=== PATIENT | female | born 2000 | race Caucasian/White ===

== ENCOUNTER 2024-09-10 11:34 | Outpatient (CLI) | payer OTHER, SELFPAY ==
--- OUTSIDE RECORDS SUMMARY | 2024-09-10 11:53 | XMS_ITS | Data Portability ---
Author Organization [facility], [facility] Address [address] [place] [address] Assessment Encounter Date Assessment Date Assessment LastModified by Organization Details LastModified Time 05/18/2024 05/18/2024 Gaby Angel is a 23 -year-old presenting s to the clinic via private vehicle for sick visit. Patient denies chest pain, shortness of breath, funny heartbeats, dizziness, nausea, vomiting, or diarrhea. Patient denies any skin concerns. Patient denies difficulty urinating. Patient denies muscular pain. Patient C/o sore throat, ear pain, headache, fatigue, sinus pressure. Patient has been using over the counter medications without relief. Pt positive for strep will send out cefdinir and dexamethasone. Pt given work note for today and tomorrow to be off. NOTE: Visit represents a synchronous, interactive real-time audio and visual virtual visit. Identity of patient verified via 3 different methods (Name, , and address). Patient has given consent and permission to be seen via telehealth. Not available 05/18/2024 16:16:25 Plan of Treatment Reminders Order Date Submit Date Provider Last Modified By Organization Details Last Modified Time Details Appointments None recorded. Lab rapid strep group A, throat 2023 [facility], [address] [place], [address], 16:06:51 influenza virus A + B + SARS-CoV-2 (COVID19) Ag panel, rapid IA, upper respiratory specimen 2023 [facility], [address] [place], [address], 16:07:04 Referral behavioral health referral 2023 [facility], [address], [address], [place], [address], 13:57:51 Procedures None recorded. Surgeries None recorded. Imaging None recorded. Medication Orders cefdinir 300 mg capsule 2023 [id number], [address] [place], [place], [id number], 16:06:28 dexamethaso ne 0.5 mg/5 mL oral elixir 2023 [facility], [address], [place], [id number], 16:09:09 naltrexone 50 mg tablet 2023 [facility] #63533, [address], [place], [id number], 12:36:03 bupropion HCl XL 150 mg 24 hr tablet, extended release 2023 [facility] #30397, [address], [place], [id number], 12:36:03 Junel FE /20 (28) 1 mg-20 mcg (21)/75 mg (7) tablet 2023 [facility] [address] [facility], [address] [facility], [place], [address], 15:55:41 Wellbutrin XL 150 mg 24 hr tablet, extended release 2023 [address] [facility] [address] [facility], [address] [place], [address], 14:50:44 Patient TargetsNo targets recorded. Patient Instructions Encounter Date Encounter Id Patient Instructions Last Modified By Organization Details Last Modified Time 05/18/2024 new tooth brush and tooth paste in 3 days. Not available 05/18/2024 16:13:18 Reason for Referral Behavioral Health Referral f or Anxiety Referring Physician: Yary Salas, Hr Manager, Encounter Date: 09/27/2023 Results Created Date Observation Date Name Description Value Unit Range Abnormal Flag Note LastModifiedBy Organization Detail LastModifiedTime 05/18/2005/18/2024 influ ora virus A + B + SARS- CoV-2 (COVI D19) Ag panel , rapid IA, upper respi rator y speci men Flu A negati ve Not Available [address], [address], 05/18/2024 14:13:33 05/18/2005/18/2024 influ ora virus A + B + SARS- CoV-2 (COVI D19) Ag panel , rapid IA, upper respi rator y speci men Flu B negati ve Not Available [address], [address], 05/18/2024 14:13:33 05/18/20 24 05/18/2024 influ ora virus A + B + SARS- CoV-2 (COVI D19) Ag panel , rapid IA, upper respi rator y speci men SARS-CoV-2 (COVID-19) negati ve Not Available [address], [address], 05/18/2024 14:13:33 05/18/20 24 05/18/2024 rapid strep group A, throa t Strep positi ve Not Available [facility] [address] [facility], [place], [address], 05/18/2024 14:13:31 Result Notes None recorded. Problems Name Problem SNOMED Code Status Onset Date Resolution Date Notes Provider Name and Address Organization Details Recorded Time Sore throat 914390024 Active 2023 Annmariesho Currie grant, [facility] 14:13:02 Illness 00322717 Active 2023 Annmarie Ceciletodd null, [facility] 14:13:22 Streptococcal sore throat 27245782 Active 2023 PRAVEEN DOTSON NP [address] [place], [address] , [facility] 16:02:59 Ringing in ear 979398722 Active 2023 PRAVEEN DOTSON NP [address] [place], [address] , [facility] 4 16:11:19 Pain of ear 476366423 Active 2023 PRAVEEN DOTSON NP [address] [place], [address] , [facility] 4 16:12:36 Fatigue 80874240 Active 2023 PRAVEEN DOTSON NP [address] [facility], [place], [address] , [facility] 4 16:12:42 Headache 44679713 Active 2023 PRAVEEN DOTSON NP [address] [place], [address] , [facility] 16:12:53 Problem Notes None recorded. Procedures Surgical History Date Name Laterality Status Provider Name and Address Organization Details Recorded Time 3 Blood Draw completed Mary Gar [facility] 09/12/2022 12:54:08 3 ECG Procedure completed Mary Gar [facility] 09/12/2022 12:54:14 2 Date of Last Pap Smear completed Not Available Health Note 09/23/2023 12:35:14 Imaging Results None recorded. Procedure Notes None recorded. Medical Equipment None Reported. Allergies No known drug allergies Medications Name Sig Start Date Stop Date Status Note LastModified by Organization Details LastModified Time meloxicam 15 mg tablet Take 1 tablet every day by oral route. 09/26 completed HN: Patient reports no longer taking Not Available Not Available Not Available naltrexon e 50 mg tablet Take 0.5 tablets every day by oral route for 90 days. 2023 active Not Available Not Available Not Avai lable hydroxyzi ne HCl 50 mg tablet TAKE 1 TABLET BY MOUTH FOUR TIMES A DAY NEEDED active Not Available Not Available No t Available dexametha sone 0.5 mg/5 mL oral elixir Take 5 mL twice a day by oral route for 3 days, for throat pain. 2023 active Not Available Not Available Not Avai lable cefdinir 300 mg capsule Take 1 capsule twice a day by oral route for 10 days. 2023 active Not Available Not Available Not Avai lable bupropion HCl XL 150 mg 24 hr tablet, extended release TAKE 1 TABLET BY MOUTH EVERY DAY 2023 active Not Available Not Available Not Avai lable 08/10 (28) 1 mg-20 mcg (21)/75 mg (7) tablet Take 1 tablet every day by oral route. 05/18 completed Not Available Not Available Not Available 08/10 (28) 28 tablets 1/day 05/18 completed Not Available Not Available Not Available Vitals Date Recorded Body height Provider Name an d Address Organization Details Last Updated DateTime 04/19/2023 173.5 cm YARY BELLE, SENIOR PRINCIPAL PROCESS ENGINEER [address] [facility], [place], [address], [facility] 04/19/2023 16:25:23 Date Recorded Body weight Body mass index (BMI) Body height Oxygen saturation Oxygen saturation in Arterial blood by Pulse oximetry Respiratory rate Heart rate Body temperature Systolic blood pressure Diastolic blood pressure Provider Name and Address Organization Details Last Updated DateTime 4 41399.3 7 g 26.4 kg/m2 176.78 cm 99 % 99 % 14 /min 77 /min 97.4 [degF] 158 mm[Hg] 97 mm[Hg] Mor Foy [facility] 4 11:26:04 Date Recorded Body height Provider Name an d Address Organization Details Last Updated DateTime 05/18/2024 176.78 cm Annmarie Currie [facility] 15:55:22 Date Recorded Systolic blood pressure Diastolic blood pressure Systolic blood pressure Diastolic blood pressure Provider Name and Address Organization Details Last Updated DateTime 11/09/2023 126 mm[Hg] 80 mm[Hg] 120 mm[Hg] 90 mm[Hg] Not Available [facility] 18:39:40 Date Recorded Systolic blood pressure Diastolic blood pressure Provider Name and Address Organization Details Last Updated DateTime 11/08/2023 114 mm[Hg] 66 mm[Hg] Not Available [facility] 10/21 18:26:41 Date Recorded Systolic blood pressure Diastolic blood pressure Systolic blood pressure Diastolic blood pressure Systolic blood pressure Diastolic blood pressure Provider Name and Address Organization Details Last Updated DateTime 132 mm[Hg] 88 mm[Hg] 132 mm[Hg] 82 mm[Hg] 122 mm[Hg] 78 mm[Hg] Not Available [facility] 21:06:19 Date Recorded Systolic blood pressure Diastolic blood pressure Provider Name and Address Organization Details Last Updated DateTime 11/11/2023 128 mm[Hg] 86 mm[Hg] Not Available [facility] 10/21 18:32:06 Date Recorded Systolic blood pressure Diastolic blood pressure Systolic blood pressure Diastolic blood pressure Provider Name and Address Organization Details Last Updated DateTime 11/13/2023 118 mm[Hg] 78 mm[Hg] 156 mm[Hg] 88 mm[Hg] Not Available [facility] 23:01:04 Date Recorded Systolic blood pressure Diastolic blood pressure Provider Name and Address Organization Details Last Updated DateTime 11/16/2023 120 mm[Hg] 86 mm[Hg] Not Available [facility] 10/21 18:36:23 Date Recorded Systolic blood pressure Diastolic blood pressure Provider Name and Address Organization Details Last Updated DateTime 12/11/2023 118 mm[Hg] 82 mm[Hg] Not Available [facility] 11/20 11:47:04 Social History Question Answer Notes LastModified by Organizat ion Details LastModified Time Tobacco Smoking Status Never Smoker Not Available Health Note 09/23/2023 12:35:12 What Is Your Level Of Alcohol Consumption? Moderate [email or web address] Information not available 09/23/2023 How Many Times Per Week Do You Consume Alcohol? 1-2 Times Per Week [email or web address] Information not available 09/23/2023 Are You Currently Employed? Yes [email or web address] Information not available 09/08/2022 What Type Of Diet Are You Following? REGULAR [email or web address] Information not available 09/23/2023 Do You Or Have You Ever Used E-cigarettes Or Vape? Former User Of Electronic Cigarettes [email or web address] Information not available 09/23/2023 Who Is Your Employer? 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 1-2 Times Per Week [email or web address] Information not available 09/23/2023 How Many Children Do You Have? 0 [email or web address] Information not available 09/23/2023 Are There Any Occupational Health Risks Where You Work? Exposures To Blood, Illness, Bodily Fluids [email or web address] Information not available 09/08/2022 Have You Ever Been Counseled For Unhealthy Alcohol Use? No [email or web address] Information not available 09/08/2022 Do You Use Protection During Sex? No [email or web address] Information not available 09/23/2023 What Is Your Relationship Status? Single [email or web address] Information not available 09/23/2023 Are You Sexually Active? Yes [email or web address] Information not available 09/23/2023 Do You Or Have You Ever Used Smokeless Tobacco? Never Used Smokeless Tobacco [email or web address] Information not available 09/08/2022 Do You Use Any Illicit Or Recreational Drugs? No [email or web address] Information not available 09/23/2023 Have You Recently Traveled Abroad? No [email or web address] Information not available 09/23/2023 Do You Or Have You Ever Used Any Other Forms Of Tobacco Or Nicotine? Yes [email or web address] Information not available 09/23/2023 Do You Have Any Future Plans To Get ? Unsure [email or web address] Information not available 09/23/2023 What Is Your Status? Not [email or web address] Information no t available 09/23/2023 Sex: Female Functional Status Question Answer Note LastModified by Organizat ion Details LastModified Time What is your exercise level? Occasional [email or web address] Information not available 09/23/2023 Mental Status None recorded. Family History Relationship Description Onset Age of this Age Resolved Age Notes LastModified by Organization Details LastModified Time Mother Family history of malignant neoplasm [email or web address] Not available 2022 13:11:52 Mother Hypertensive disorder [email or web address] Not available 2022 13:11:52 Sister Family history of diabetes mellitus Diabet es [email or web address] Not available 09/23/2023 12:35:10 Medical History Condition Response ADD/ADHD N Heart Disease N Cancer N Stroke N Thyroid Problems N Hypertension N Depression N COPD N Asthma N Gynecological History Statement/Question Response STIs/STDs N HPV Vaccine Y Date of Last Pap Smear 04/05/2022 Date of LMP 05/15/2024 History of abnormal pap smears N Obstetrics History GPAL:G 0 P 0 0 0 0 Immunizations Vaccine Type Date Status Note Provider Nam e and Address Organization Details Recorded Time COVID-19, mRNA, LNP-S, PF, 100 mcg/0.5mL dose or 50 mcg/0.25mL dose 1 completed Not Available Health Note 09/08/2022 13:11:59 COVID-19, mRNA, LNP-S, PF, 100 mcg/0.5mL dose or 50 mcg/0.25mL dose 1 completed Not Available Health Note 09/08/2022 13:11:59 Tdap 2 completed Not Available Health Note 09/08/2022 13:11:59 HPV, quadrivalent 2 completed Not Available Health Note 09/08/2022 13:11:59 Influenza, split virus, quadrivalent, preservative 2 completed Not Available Health Note 09/08/2022 13:11:59 Past Encounters Encounter ID Performer Location Encounter Start Date Encounter Closed Date Diagnosis/Indication Diagnosis SNOMED-CT Code Diagnosis ICD10 Code Diagnosis Note [id number] YARY SALAS NP [facility] [address] [place] [address] 09/12/2022 11:58:15 09/12/2022 13:16:27 Active or passive immunization 802883967 Z23 Chest pain 41641474 R07. 9 differenti als:anxiet ypleurisyi schemia/PE lung pneumonia/ bronchitis (no URI symptoms, no wheezing) Modified Rooks score: 5Clinical probabilit y of PE: Intermedia teWells score: 0Clinical probabilit y of PE: Low check labs and xray Referral needed 09290383 9 Z76.89 Renewal of prescription 914343045 Z76.0 [id number] YARY SALAS NP [facility] [address] [place] [address] 10/11/2022 13:06:58 10/11/2022 14:25:00 Chest pain 72097850 R07.9 Chest xray and labs normal, trial meloxicam x10 days and update with symptoms differenti als:anxiet ypleurisyi schemia/PE lung pneumonia/ bronchitis (no URI symptoms, no wheezing) Modified Rooks score: 5Clinical probabilit y of PE: Intermedia teWells score: 0Clinical probabilit y of PE: Low check labs and xray [id number] YARY SALAS NP [facility] [address] [place] [address] 04/19/2023 16:25:04 04/23/2023 11:04:18 Vertigo 320174245 R42 BPPV vs Meniereswa iting on Susie consultsug gested flonasecon tinue with meclizine and zofran as neededcont inue with emmanuel maneuvers [id number] YARY SALAS NP [facility] [address] [place] [address] 09/27/2023 11:22:32 09/27/2023 12:15:34 Anxiety 88009968 F41.9 Follow up in 4-5 weeks, virtual If you are thinking about harming yourself or attempting suicide, tell someone who can help right away:*Call 911 for emergency services.* Go to the nearest hospital emergency room.*Call or text 988 to connect with the [facility] Suicide & Crisis Lifeline. The Lifeline provides 24-hour, confidenti al support to anyone in suicidal crisis or emotional distress. Support is also available via live chat. Para ayuda en espa ol, llame al 988. Adult heal th examination 147884515 Z00.00 labs last year normal, none needed today Renewal of prescription 971678695 Z76.0 [id number] YARY SALAS NP [facility] [address] [place] [address] 11/08/2023 12:11:36 11/08/2023 14:44:06 Anxiety 24940325 F41.9 -19: continue current dose of wellbutrin , follow up in 12 weeks Follow up in 4-5 weeks, virtual If you are thinking about harming yourself or attempting suicide, tell someone who can help right away:*Call 911 for emergency services.* Go to the nearest hospital emergency room.*Call or text 988 to connect with the [facility] Suicide & Crisis Lifeline. The Lifeline provides 24-hour, confidenti al support to anyone in suicidal crisis or emotional distress. Support is also available via live chat. Para ayuda en espa ol, llame al 988. [id number] [facility] [address] [place] [address] 04/29/2024 11:54:11 05/08/2024 11:32:11 Anxiety 73001084 F41.9 -19: continue current dose of wellbutrin , follow up in 12 weeks Follow up in 4-5 weeks, virtual If you are thinking about harming yourself or attempting suicide, tell someone who can help right away:*Call 911 for emergency services.* Go to the nearest hospital emergency room.*Call or text 988 to connect with the 988 Suicide & Crisis Lifeline. The Lifeline provides 24-hour, confidenti al support to anyone in suicidal crisis or emotional distress. Support is also available via live chat. Para jane marques al 988. Binge eating behavior 11 17862299 F50.819 [id number] PRAVEEN DOTSON NP [address] [address] 05/18/2024 15:50:21 05/18/2024 16:16:21 Sore throat 063394183 J02.9 Streptococ sofía sore throat 61995223 J02.0 Pain of ear 267582324 H9 2.09 Fatigue 29237746 R53.83 Headache 50830636 R51.9 Health Concerns Section Related Observation LastModified by Organization Detai ls LastModified Time None Recorded Concern Status LastModified by Organization Details LastModified Time None Recorded Advance Directives Directive None Recorded Payers Encounter Date Sequence Insurance Name Policy Number Policy Kiser Covered Member ID Kiser Member ID Guarantor Name 04/19/2023 1 [facility] [id number] Gaby Angel [id number] Gaby nAgel 04/19/2023 2 [employer] - [facility] - CHOICE PLUS (PPO) [id number] Boaz Angel I [id number] Gaby Angel 09/27/2023 2 [employer] - [facility] - CHOICE PLUS (PPO) [id number] Boaz Angel I [id number] Gaby Angel 09/27/2023 1 [facility] [id number] Gaby Angel [id number] Gaby Angel 11/08/2023 2 [employer] - [facility] - CHOICE PLUS (PPO) [id number] Boaz Angel I [id number] Gaby Angel 11/08/2023 1 [facility] [id number] Gaby Angel [id number] Gaby Angel 04/29/2024 2 [employer] - [facility] - CHOICE PLUS (PPO) [id number] Boaz Angel I [id number] Gaby Angel 04/29/2024 1 [facility] [id number] Gaby Angel [id number] Gaby Angel 05/18/2024 2 [employer] - [facility] - CHOICE PLUS (PPO) [id number] Boaz Angel I [id number] Gaby Angel 05/18/2024 1 [facility] [id number] Gaby Angel [id number] Gaby Angel Notes Date Note Type Note Provider Name and Address Organization Details Recorded Time 04/19/2023 text/html Interactive real -time audio and Visual Virtual Visit. Verified patient's identity via 3 different methods (Name, , address/SSN). Patient gave verbal permission to be seen via telehealth. Patient is located in [place]. 22 year old established female who presented as a telehealth visit to follow up from an ER visit yesterday. She explains that she woke up around 5am and the room was spinning and her eyes were tracking back and forth like shew as reading a book. She explains she was also diaphoretic and vomiting. She was having trouble walking. She went to ER where they gave her meclizine and Zofran and tried Emmanuel maneuver which almost immediately began to help. She was dx with BPPV and sent home with RX for meclizine and zofran. She states she is feeling better today and was able to take a walk. She still feels a bit dizzy when she turns her head to the left. She also admits to a pressure in her left ear. Ear was documented to be normal on exam of ER physician. In the past, Gaby reports she has frequently felt fullness in the left ear and frequently gets tinnitus in the left ear. No hearing loss. She has also had several episodes of dizziness in the last year, lasting seconds - minutes. Never like yesterday. Labs completed in ER - CBC, CMP, and UA were unremarkable Consider Meniere's disease vs BPPV-will consult with ENT for next steps. Patient actively denies chest pain, palpitations, dizziness, light headed or shortness of breath. Patient is alert and oriented and appears to be in no acute distress. Reason for Visit:Sick visit Sick Visit: Symptoms:dizziness, nauseaRecent sick contact:no YARY SALAS NP [address] [facility], [place], [address], [facility] 04/19/2023 16:27:23 09/27/2023 text/html Gaby is a we ll appearing 22 year old female who presents to the clinic for annual exam. No vision concernsNo hearing concernsNo dental concerns- Sees dentist yearlyDoes not snore, sleeps well, sleeps too much and is always fatigued on her days off. Discussed diet and exercise- walks a lot daily, watches what she eats. Does endorse some emotional binge eating. Feels like she is constantly gaining weight despite everything she tried. Suggested therapy and wellbutrin may help.Discussed multivitamins and supplement use- suggested adding vit d, mag, and iron Mental Health: PHQ-9 completed and reviewed.anxious to try medication but believes she is experiencing a little bit of depressionthought about therapy, reached out and haven't had chance to follow up. Has looked up Wellbutrin and is interested in trying. Smoking: Vaccinations up to date that she is aware of LMP: 2nd last week of every month, no change Cervical CA screening: [facility] screening: not indicatedColon CA screening: not indicatedLung CA screening: not indicated [employer]IV[employer]URAL DESIGN[employer] lists - anywhere Concerns/Complaints: Notes: Patient actively denies chest pain, palpitations, dizziness, light headed or shortness of breath. Patient is alert and oriented and appears to be in no acute distress. YARY SALAS NP [address] [place], [address], [facility] 09/27/2023 13:19:09 11/08/2023 text/html Interactive real -time audio and Visual Virtual Visit. Verified patient's identity via 3 different methods (Name, , address/SSN). Patient gave verbal permission to be seen via telehealth. Patient is located in [place]. Gaby Hardy [id number] presenting via telemedicine for medication follow up on wellbutrin. She states she has been feeling really good, more motivation, less generalized anxiety, no depressive thoughts. She is sleeping well, has lost 8 lbs, eating well. Has not started to exercise. She is really happy at current dose of medication. Denies SI/HI. Denies auditory or visual hallucinations. Reports BP at [employer] was elevated too. discussed home BP monitoring x7-10 days Reason for Visit:Medication refill Medication Refill: Medications requested to be refilled:WellbutrinSid e effects:No YARY SALAS NP [address] [place], [address], [facility] 11/08/2023 12:14:25 04/29/2024 text/html Interactive real -time audio and Visual Virtual Visit. Verified patient's identity via 3 different methods (Name, , address/SSN). Patient gave verbal permission to be seen via telehealth. Gaby Hardy [id number] presenting for follow up of anxiety and depression and binge eating with treatment of wellbutrin that was started in October. She states it is working really well, she has noticed a significant improvement in her depression and overall mood as well as better managing the irrational thoughts and worries of her anxiety. She did notice an improvement/reduction in appetite with food noise, especially in the beginning, but it does seem to be returning. She does struggle with binges, and notes that if she deprives herself it seems to make it worse. No hx of purging.No Si, no HI, no auditory or visual hallucinations. PHQ9 and SIMONA completed and reviewed. Will keep buproprion at same dosage and plan to add on naltrexone for binge eating behaviors. Did discuss this as off label and patient is aware. Will follow up in 6 months for annual unless needed sooner. If you are thinking about harming yourself or attempting suicide, tell someone who can help right away:*Call 911 for emergency services.*Go to the nearest hospital emergency room.*Call or text 988 to connect with the 988 Suicide & Crisis Lifeline. The Lifeline provides 24-hour, confidential support to anyone in suicidal crisis or emotional distress. Support is also available via live chat. Para jane marques [phone]. Reason for Visit:Depression Depression: Progression since last visit:Staying the sameTx since last visit:MedicationTaking medication as directed:yesSide effects:NoFound tx helpful:Yes YARY SALAS NP [address] [place], [address], [place] [employer] 04/29/2024 12:36:51 05/18/2024 text/html Gaby Hardy [id number] presenting s to the clinic via private vehicle for sick visit. Patient denies chest pain, shortness of breath, funny heartbeats, dizziness, nausea, vomiting, or diarrhea. Patient denies any skin concerns. Patient denies difficulty urinating. Patient denies muscular pain. Patient C/o sore throat, ear pain, headache, fatigue, sinus pressure. Patient has been using over the counter medications without relief. Reason for Visit:Sick visit Sick Visit: Symptoms:chills, dysphagia, ear pain, fatigue, headache, sinus pressure, sore throatRecent sick contact:no Reproductive History: LMP:05/15/2024 PRAVEEN DOTSON NP [address] [place], [address], [facility] [place] [facility] [place] [employer] 05/18/2024 16:17:39 OBGyn Episode No OBEpisode recorded.
--- OUTSIDE RECORDS SUMMARY | 2024-09-10 11:53 | XMS_ITS | Encounter Summary ---
Author Organization [facility] Address [address] [place] [address] Care Team Providers Care Siebel Architect Name Role Phone Unavailable Primary Care Provider Unavailabl e Encounter Details Date Type Department Care Team (Late st Contact Info) Description 09/09/2024 External Device Data [facility] ABSTRACTION Provider, Abstract NO ADDRESS ON FILE Social History Tobacco Use Types Packs/Day Years Used Date Smoking Tobacco: Never Smokeless Tobacco: Never Alcohol Use Standard Drinks/Week Comments Yes 0 (1 standard drink = 0.6 oz pur e alcohol) occasionally Comments No Sex and Gender Information Value Date Recorded Sex Assigned at Not on file Legal Sex Female 9:40 AM CDT Gender Identity Not on file Sexual Orientation Not on file documented as of this encounter Plan of Treatment Not on file documented as of this encounter Visit Diagnoses Not on filedocumented in this encounter
--- OUTSIDE RECORDS SUMMARY | 2024-09-10 11:53 | XMS_ITS | Clinical Summary ---
Author Organization [facility] [place] [address] Address [address] [place] [address] Care Team Providers Care Bobbin Loose End Finder Name Role Phone Beena Wagner NP Primary Care Provider [phone] Allergies No known active allergies Medications meclizine (ANTIVERT) 25 mg tabletIndicatio ns:Vertigo Take 1 tablet (25 mg total) by mouth 3 (three) times a day as needed for dizziness 15 tablet 2 3 Active ondansetron (ZOFRAN) 4 mg tablet Take 1 tablet (4 mg total) by mouth every 8 (eight) hours as needed for nausea or vomiting 20 tablet 3 Active Social History Tobacco Use Types Packs/Day Years Used Date Smoking Tobacco: Never Assessed Personal Safety Answer Date Recorded Have you ever been in or are you currently in a harmful physical or emotional relationship or is someone making you feel afraid or unsafe? Denies 04/18/2023 Comments No Sex and Gender Information Value Date Recorded Sex Assigned at Not on file Legal Sex Female 8:[address] Gender Identity Not on file Sexual Orientation Not on file Obstetrics History Last Filed Vital Signs Vital Sign Reading Time Taken Comments Blood Pressure 124/86 04/18/2023 7:55 AM CDT Pulse 72 04/18/2023 7:55 AM CDT Temperature 36.3 C (97.3 F) 04/18/2023 6:00 AM CDT Respiratory Rate 16 04/18/2023 6:00 AM CDT Oxygen Saturation 96% 04/18/2023 7:55 AM CDT Inhaled Oxygen Concentration - - Weight 77.1 kg (170 lb) 04/18/2023 6:00 AM CDT Height 175.3 cm (5' 9) 04/18/2023 6:00 AM CDT Body Mass Index 25.1 04/18/2023 6:00 AM CDT Plan of Treatment Health Maintenance Due Date Last Done Comments Cervical Cancer Screening 1999 Depression Screening 1999 Hepatitis C Screening 1999 Regular Well Visit/Exam 18-64 10/04/2017 Covid-19 Vaccine ( season) 2024 07/25/2021, 09/16/2020, 08/16/2020, Additional history exists Influenza Vaccine (#1) 2024 , 04/21/2022, 03/14/2010, Additional history exists DTaP/Tdap/Td Vaccine (7 - Td or Tdap) 07/22/2031 07/22/2021, 02/09/2011, 01/16/2005, Additional history exists Hepatitis B Screening Completed 10/29/2000 , 04/13/2000, 01/10/2000 Varicella Vaccines Completed 03/14/2010, 01/01/2003 HPV Vaccines Completed 12/18/2013, 01/21, 07/22/2011, Additional history exists Pneumococcal vaccine <65 Aged Out No longer eligible based on patient's age to complete this topic Insurance [facility] [employer] Address: [facility] [id number] [place] [address] [facility] H[facility]/PPO Address: [address] [address] [place] [address] [facility] CHOICE PLUS [facility] HMO/PPO Address: [address] [address] [place] [address] [facility] [employer] Address: [facility] [address] [place] [address] [facility] HMO/PPO Address: [address] [address] [place] [address] [facility] CHOICE PLUS [facility] HMO/PPO Address: [place] [address] [facility] CHOICE PLUS [facility] HMO/PPO Address: [address] [facility] H[facility]/PPO Address: [facility] [address] [place] [address] Care Teams Bobbin Loose End Finder Relationship Specialty Start Date End Date Beena Wagner NP [address] [facility] [address] [address] [address] PCP - General Family Medicine 09/07/22
--- OUTSIDE RECORDS SUMMARY | 2024-09-10 11:53 | XMS_ITS | Referral Summary ---
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 Gender Identity Not on file Sexual Orientation Not on file Last Filed Vital Signs Vital Sign Reading [...] 04/18/2023 6:00 AM CDT Plan of Treatment Not on file [facility] [employer] Address: [facility] [id number] [place] [address] [facility] CHOICE PLUS [employer] [facility] [employer] Address[facility] [address] [place] [address] [facility] [place] [address] [facility] CHOICE PLUS [facility] CHOICE PLUS [facility] Care Teams Imitation Marble Mechanic Relationship Specialty Start Date End Date Beena Wagner NP [address] [address] PCP - General Family Medicine 09/07/22
--- OUTSIDE RECORDS SUMMARY | 2024-09-10 11:53 | XMS_ITS | Clinical Summary ---
Author Organization [facility] [address] [facility] Address [address] [place] [address] Care Team Providers Care Horticultural Specialty Grower Inside Name Role Phone Unavailable Primary Care Provider Unavailabl e Medications buPROPion (WELLBUTRIN) 100 mg tablet Take 100 mg by mouth 2 times daily. Active levonorgestreL (Mirena) 21 mcg/24 hr (8 yrs) 52 mg IUD by Intrauterine route. Active Active Problems No known active problems Encounters Date Type Department Care Team Description 09/09/2024 External Device Data [facility] ABSTRACTION Provider, Abstract 08/19/2024 External Device Data [facility] ABSTRACTION Provider, Abstract 08/13/2024 External Device Data [facility] ABSTRACTION Provider, Abstract from Last 3 Months Family History Medical History Relation Name Comments Endometrial Cancer Mother Ovarian Cancer Mother germ cell Breast Cancer Neg Hx Colon Cancer Neg Hx Uterine Cancer Neg Hx Relation Name Status Comments Mother Social History Tobacco Use Types Packs/Day Years Used Date Smoking Tobacco: Never Smokeless Tobacco: Never Tobacco Cessation:Counseling Given: Not Answered Alcohol Use Standard Drinks/Week Comments Yes 0 (1 standard drink = 0.6 oz pur e alcohol) occasionally Comments No Sex and Gender Information Value Date Recorded Sex Assigned at Not on file Legal Sex Female 9:40 AM CDT Gender Identity Not on file Sexual Orientation Not on file Last Filed Vital Signs Vital Sign Reading Time Taken Comments Blood Pressure 118/82 12/11/2023 10:34 AM CDT Pulse - - Temperature - - Respiratory Rate - - Oxygen Saturation - - Inhaled Oxygen Concentration - - Weight 78.6 kg (173 lb 3.2 oz) 12/11/2023 10:34 AM CDT Height - - Body Mass Index - - Plan of Treatment Health Maintenance Due Date Last Done Comments INFLUENZA VACCINE (#1) 2024 2, 03/14/2010, 05/25/2009 COVID-19 Vaccine ( season) 2024 07/25/2021, 09/16/2020, 08/16/2020, Additional history exists CERVICAL CANCER SCREENING 10/29/2026 10/30/2023 DTAP/TDAP/TD VACCINES (7 - Td or Tdap) 07/22/2031 07/22/2021, 02/09/2011, 01/16/2005, Additional history exists HEPATITIS B VACCINES Completed 10/29/2000, 04/13/2000, 01/10/2000 HPV VACCINES Completed 12/18/2013, 01/21, 07/22/2011, Additional history exists PNEUMOCOCCAL VACCINE 0-64 YEARS Aged Out No longer eligible based on patient's age to complete this topic Procedures Procedure Name Priority Date/Time Associated Diagnosis Comments CERV/VAG CYTO AGE BASED SCREEN PAP W CT/NG, TRICH Routine 10/30/2023 12:07 PM CDT Cervical cancer screening Routine screening for STI (sexually transmitted infection) from Last 3 Months or Most Recently Relevant to Health Maintenance Results * CERV/VAG CYTO AGE BASED SCREEN PAP W CT/NG, TRICH (10/30/2023 12:07 PM CDT) COMMENT (PAP): [facility] Comment: This order for age-based cervical cancer and STI screening follows ACOG guidelines(PB 168, 140, PRO617). See individual assays for performing site location. CLINICAL INFORMATION [facility] Comment:None given LAST MENSTRUAL PERIOD [facility] Comment:10/15/2023 PREV PAP: [facility] Comment:NONE GIVEN PREV BX: [facility] Comment:NONE GIVEN SOURCE [facility] Comment:Endocervix ADEQUACY: [facility] Comment: Satisfactory for evaluation. Endocervical/transformation zone component present. PAP INTERP [facility] Comment: Cytology Results: Negative for intraepithelial lesion or malignancy. COMMENT (PAP TEST) [facility] [place] Comment: This Pap test has been evaluated with computer assisted technology. REVENUE COLLECTOR: [facility] [place] Comment: COURTNEY, CT(ASCP) CT screening location: [place] [address] [place] [address] EXPLANATORY NOTE [facility] Comment: EXPLANATORY NOTE: The Pap is a screening test for cervical cancer. It is not a diagnostic test and is subject to false negative and false positive results. It is most reliable when a satisfactory sample, regularly obtained, is submitted with relevant clinical findings and history, and when the Pap result is evaluated along with historic and current clinical information. C TRAC RNA NOT DETECTED NOT DETECTED [facility] N.GONORRHOEAE RNA, TMA NOT DETECTED NOT DETECTED [facility] [place] COMMENT INFECTIOUS DISEASE [facility] [place] Comment: The analytical performance characteristics of this assay, when used to test SurePath(TM) specimens have been determined by [employer]. The modifications have not been cleared or approved by the FDA. This assay has been validated pursuant to the CLIA regulations and is used for clinical purposes. For additional information, please refer to https://[employer]/faq/DMG375 (This link is being provided for information/ educational purposes only.) TRICHOMONAS VAGINALIS,QUALITAT ALIN,PAP VIAL NOT DETECTED NOT DETECTED [facility] [place] Comment: The analytical performance characteristics of this assay have been determined by [employer]. The modifications have not been cleared or approved by the FDA. This assay has been validated pursuant to the CLIA regulations and is used for clinical purposes. For additional information, please refer to http://[employer]/ faq/Trichomonastma (This link is being provided for information/ educational purposes only.) Test Performed at: [facility] [id number] [id number] [address] [facility] SWAB OF ENDOCERVIX / Unknown 10/30/2023 12:07 PM CDT 10/31/2023 3:40 AM CDT us Kellee Young MD PATHOLOGY/CYTOLOGY O RDERABLES Final Result [facility] [phone] [facility] [id number] [id number] from Last 3 Months or Most Recently Relevant to Health Maintenance Insurance [place] [id number]
[2024-09-10 20:15] LABS: Alanine Aminotransferase 21 U/L (6-35); Albumin Level 4.9 g/dL (3.5-5.1); Alkaline Phosphatase 87 U/L (38-126); Anion Gap 11 mmol/L (4-12); Aspartate Amino Transferase 34 U/L (14-36); Bilirubin,Total 1.2 mg/dL (0.2-1.3); Blood Urea Nitrogen 16 mg/dL (7-17); Calcium 10.5 mg/dL (8.4-10.2); Carbon Dioxide 27 mmol/L (22-30); Chloride 101 mmol/L (98-107); Cholesterol 195 mg/dL (0-200); Estimated Glomerular Filt Rate > 60; Glucose 76 mg/dL (65-110); HDL Direct 90 mg/dL; Potassium 4.8 mmol/L (3.4-5.0); Sodium 139 mmol/L (137-145); Triglycerides 47 mg/dL (<150)
[2024-09-10 20:24] LABS: Hemoglobin 14.7 g/dL (12.0-15.0); Mean Corpuscular HGB Conc 33.4 g/dl (32-36); Mean Corpuscular Hemoglobin 30.9 pg (26-34); Mean Corpuscular Volume 92.6 fl (80-100); Mean Platelet Volume 11.1 fl (7.4-10.4); Platelet Count Result 295 k/mm3 (150-375); Red Blood Count 4.75 M/mm3 (4.2-5.4); Red Cell Distribution Width 11.8 % (11.5-14.5); White Blood Count 6.1 K/mm3 (4.5-10.0)
[2024-09-10 20:26] LABS: LDL Cholesterol Direct 100 mg/dL
[2024-09-10 20:34] LABS: Free T4 Free Thyroxine 0.84 ng/dL (0.78-2.19)
[2024-09-10 20:44] LABS: Thyroid Stimulating Hormone 0.822 uIU/mL (0.465-4.680)
== END 2024-09-10 11:35 | disposition home or self-care (01) ==
PROVIDERS: PCP Nurse Practitioner Adult Health; Visit Provider Nurse Practitioner Adult Health
DX: Z00.00 Encounter for general adult medical examination without abnormal findings (principal)
CPT/HCPCS: 36415; 80053; 80061; 84439; 84443; 85027